=== PATIENT | male | born 1985 | race Caucasian/White ===

== ENCOUNTER 2021-07-05 12:55 | Emergency (ER) | payer OTHER, SELFPAY ==
--- NOTE | ~2021-07-05 | CT_ITS ---
CT head/brain wo con CLINICAL INFORMATION: Reason for Exam headache COMPARISON: No prior CT scan available for comparison. TECHNIQUE: Department standard protocol. This CT examination was performed using dose optimization techniques as appropriate, variously including the following: *Automated exposure control *Adjustment of mA and/or kV according to patient size (this includes techniques or standardized protocols for targeted exams where dose is matched to indication/reason for exam; i.e. extremities or head) *Use of iterative reconstruction technique DLP: 1131 mGy-cm FINDINGS: CEREBRAL HEMISPHERES: There is no evidence of intra-axial or extra-axial mass, hemorrhage or acute infarct. BRAIN PARENCHYMA: Normal gurrola-white matter differentiation. SUBDURAL SPACE: No bleed. BASAL GANGLIA AND PINEAL GLAND: Unremarkable VENTRICLES: Symmetric and normal in size. CEREBELLUM AND BRAINSTEM: No space-occupying mass, hemorrhage or acute infarct. CEREBELLOPONTINE ANGLES: No lesion found. ORBITS: No intraorbital mass. VESSELS: Unremarkable SKULL BASE: Unremarkable INCLUDED SINUSES AT SKULL BASE: There is partial opacification of the ethmoidal air cells bilaterally suggesting sinusitis. SKULL AND SKIN: No fracture or bone lesion found. CT/CT head/brain wo con IMPRESSION: Fluid and mucosal thickening in the maxillary sinuses bilaterally suggesting sinusitis, this can be evaluated by dedicated CT sinuses if clinically indicated. No intracranial mass or bleed. Normal CT scan does not rule out the possibility of hyperacute infarct in the first 12 hours. If patient symptoms persist may consider correlation with MRI, which is more sensitive for early acute infarct.
[2021-07-05 13:09] VITALS: BP 151/90; PULSE 101; RESP 20; TEMP 36.9; O2SAT 97; BMI 33.9
[2021-07-05] MEDS: Ondansetron ODT 4 MG TAB.RAPDIS TRANSLINGU (13:22)
[2021-07-05 13:46] LABS: COVID-19 Test Negative (Negative); IDNOW Serial# 16C4AD1C
[2021-07-05 13:47] LABS: IDNOW Serial# 9DD0AD1C; Influenza A Negative (Negative); Influenza B2 Negative (Negative)
--- NOTE | 2021-07-05 14:02 | ED.NAVMDI ---
HPI - Nausea/Vomiting/Diarrhea General Chief complaint: Nausea/Vomiting/Diarrhea Stated complaint: vomiting sore throat x 3 days Time Seen by Provider: 07/05/21 13:54 Source: patient Mode of arrival: ambulatory Limitations: no limitations History of Present Illness MD elicited complaint: nausea, vomiting, abdominal pain and other (headaches) Pertinent past history: other (hx of headaches in the past causing vomiting and then abdominal pain) Onset (ago): day(s) (3) Description of vomiting: food contents, watery and none Associated nausea: Yes Associated abdominal pain: Yes Location of pain: diffuse Pain consistency: constant Severity: moderate Quality: other (throbbing pain ) Exacerbating factors: vomiting Relieving factors: none Context: other (hx recently of headaches once a month causing severe pain and vomiting - he has not had imaging done but has gone to [facility] for treatment, he notes he is vomiting longer than usual this time. Has not seen a PCP. Took no OTC medications) Associated symptoms: headaches and nausea/vomiting Treatment prior to arrival: other (tried TUMs) Related Data Allergies Allergy/AdvReac Type Severity Reaction Status Date / Time ibuprofen [IBUPROFEN] Allergy Mild RASH Unverified 11/04/19 16:14 diphenhydramine AdvReac Agitated Verified 07/05/21 14:26 [From Benadryl] ANESTHESIA Allergy Mild ABDOMINAL Uncoded 11/04/19 16:14 PAIN Review of Systems Review of Systems: Constitutional : No Fever, No Chills, No Fatigue ENT/Mouth : No sore throat, No Rhinorrhea Eyes: No Eye Pain, No Swelling, No Redness Cardiovascular : No Chest Pain, No SOB, No Dyspnea on Exertion Respiratory : No Cough, No Sputum Gastrointestinal : pos Nausea, pos Vomiting, No Diarrhea, No abdominal Pain Genitourinary : No Dysuria, No Urinary Frequency, No Hematuria, Musculoskeletal : No joint pain, No Myalgias, No Joint Swelling Skin : No Skin Lesions, No rash Neuro : No Weakness, No Numbness, No Dizziness, positive Headache Psych : No Anxiety/Panic, No Depression Heme/Lymph: No Bruising, No Bleeding,No Lymphadenopathy Endocrine : No Polyuria, No Polydipsia All other systems reviewed and are negative Gastrointestinal: Gastrointestinal: Reports nausea PMFSH Past Medical History Attestation statement: The following information was validated with the patient. Source: old records reviewed Medical History Cyclical vomiting Headache Social History Social History (Updated 07/05/21 @ 14:08 by Leticia Astorga DO) Alcohol intake: never Patient Tobacco Use Status: Current everyday Tobacco user Use of substances other than those prescribed or required for medical reasons: No Substance Use Type: Former Substance User Advance Directives: No Advance Directives Information Provided: No Physical Exam Vital Signs: Vital Signs: Last Vital Signs Temp 98.5 F 07/05/21 13:09 Pulse 92 07/05/21 14:30 Resp 18 07/05/21 14:30 BP 106/69 07/05/21 14:30 Pulse Ox 99 07/05/21 14:30 BMI result Body Mass Index 33.9 Appearance: Alert. Oriented X3. Anxious dry heaving mild acute distress. Eyes: Pupils equal, round and reactive to light. ENT: Pharynx mild dry MM Neck: Normal inspection. Neck supple. no meningeal signs CVS: Normal heart rate and rhythm. Pulses normal. Respiratory: No respiratory distress. Breath sounds normal. Abdomen: Soft and mild diffuse ttp no rebound or guarding Skin: Skin warm and dry. pale skin color. Normal skin turgor. Extremities: No lower extremity edema. No calf ttp Neuro: Oriented X 3. No motor deficit. No sensory deficit. normal gait Course Course Course Narrative: review of EMR shows multiple visits in the old system and admission for intractable nausea/vomiting related to likely THC/substance abuse and possible small hiatal hernia WBC trend range well above 12 as high as 19.7 IM haldol ordered vomiting has improved signed out to Dr. 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 He denies trauma or DOAC use. He does not have a fever here and has not taken any antipyretics at home today. States he has had a similar presentation in the past severe headache with resulting nausea that went away at home. He notes the n/v is much worse today and now both sides of his abdomen are sore. He has no fever here. Symptoms started upon waking. Given hx of similar incidence in past doubt SAH, no fevers here he has a soft supple neck doubt [employer] infection. At this time no prior CT scan of head for mass - will order today along with supportive medications and IVF. Dispo per results and findings. Lab Data Result diagrams: 07/05/21 14:18 07/05/21 14:18 Labs: Lab Results 07/05/21 07/05/21 07/05/21 Range/Units 13:17 13:17 14:18 WBC (4.8-10.8) X10*3/uL RBC (4.60-5.80) X10*6/uL Hgb (14.0-18.0) g/dl Hct (42.0-52.0) % MCV (80.0-98.0) fL MCH (27.0-33.0) pg MCHC (31.0-36.0) g/dl RDW (11.0-16.0) % Plt Count (160-400) X10*3/uL MPV (9.4-12.4) fL Immature Gran % (Auto) (0.0-0.4) % Neut % (Auto) (45-73) % Lymph % (Auto) (20-40) % Preston % (Auto) (2-11) % Eos % (Auto) (0-4) % Baso % (Auto) (0-2) % Lymph # (Auto) (1.2-4.9) X10*3/uL Preston # (Auto) (0.1-1.2) X10*3/uL Eos # (Auto) (0.0-0.4) X10*3/uL Baso # (Auto) (0.0-0.2) X10*3/uL Abs Immat Gran (auto) (0.00-0.03) X10*3/uL Absolute Neuts (auto) (2.0-8.3) x10*3/uL Absolute Nucleated RBC (0.0-0.012) X10*3/uL Nucleated RBC % (auto) (0.0-0.2) /100WBC PT (9.9-13.0) SEC INR (0.9-1.1) Sodium 140 (135-145) mmol/L Potassium 3.6 (3.3-5.1) mmol/L Chloride 103 (96-108) mmol/L Carbon Dioxide 28 (22-29) mmol/L Anion Gap 13 (12-20) BUN 8 L (9-16) mg/dL Creatinine 0.96 (0.5-1.4) mg/dL Estim Creat Clear Calc 118.2 Estimated GFR > 60 Random Glucose 101 (60-115) mg/dL Calcium 9.7 (8.4-10.2) mg/dL Magnesium (1.6-2.6) mg/dL Total Bilirubin (0.0-1.0) mg/dL Direct Bilirubin (0.0-0.5) mg/dL AST (5-37) U/L ALT (0-40) U/L Alkaline Phosphatase (39-117) U/L Total Protein (6.5-8.0) g/dL Albumin (3.5-5.0) g/dL Lipase (8-78) U/L COVID-19 (PRISCILA) Negative (Negative) COVID-19 Clin Com See Note Influenza Type A (MICHAEL) Negative (Negative) Influenza Type B (MICHAEL) Negative (Negative) Influenza A & B Note See Note 07/05/21 07/05/21 07/05/21 Range/Units 14:18 14:18 14:18 WBC 14.5 H (4.8-10.8) X10*3/uL RBC 4.77 (4.60-5.80) X10*6/uL Hgb 13.7 L (14.0-18.0) g/dl Hct 41.1 L (42.0-52.0) % MCV 86.2 (80.0-98.0) fL MCH 28.7 (27.0-33.0) pg MCHC 33.3 (31.0-36.0) g/dl RDW 14.0 (11.0-16.0) % Plt Count 276 (160-400) X10*3/uL MPV 9.3 L (9.4-12.4) fL Immature Gran % (Auto) 0.3 (0.0-0.4) % Neut % (Auto) 81.6 H (45-73) % Lymph % (Auto) 11.9 L (20-40) % Preston % (Auto) 5.9 (2-11) % Eos % (Auto) 0.1 (0-4) % Baso % (Auto) 0.2 (0-2) % Lymph # (Auto) 1.7 (1.2-4.9) X10*3/uL Preston # (Auto) 0.9 (0.1-1.2) X10*3/uL Eos # (Auto) 0.0 (0.0-0.4) X10*3/uL Baso # (Auto) 0.0 (0.0-0.2) X10*3/uL Abs Immat Gran (auto) 0.05 H (0.00-0.03) X10*3/uL Absolute Neuts (auto) 11.8 H (2.0-8.3) x10*3/uL Absolute Nucleated RBC 0.000 (0.0-0.012) X10*3/uL Nucleated RBC % (auto) 0.0 (0.0-0.2) /100WBC PT 12.8 (9.9-13.0) SEC INR 1.1 (0.9-1.1) Sodium (135-145) mmol/L Potassium (3.3-5.1) mmol/L Chloride (96-108) mmol/L Carbon Dioxide (22-29) mmol/L Anion Gap (12-20) BUN (9-16) mg/dL Creatinine (0.5-1.4) mg/dL Estim Creat Clear Calc Estimated GFR Random Glucose (60-115) mg/dL Calcium (8.4-10.2) mg/dL Magnesium 1.8 (1.6-2.6) mg/dL Total Bilirubin 0.5 (0.0-1.0) mg/dL Direct Bilirubin 0.2 (0.0-0.5) mg/dL AST 15 (5-37) U/L ALT 24 (0-40) U/L Alkaline Phosphatase 61 (39-117) U/L Total Protein 7.2 (6.5-8.0) g/dL Albumin 4.2 (3.5-5.0) g/dL Lipase 7 L (8-78) U/L COVID-19 (PRISCILA) (Negative) COVID-19 Clin Com Influenza Type A (MICHAEL) (Negative) Influenza Type B (MICHAEL) (Negative) Influenza A & B Note Discharge Plan Discharge Clinical Impression: Acute generalized abdominal pain Vomiting Qualifiers: Vomiting type: unspecified Nausea presence: with nausea Qualified Code(s): R11.2 - Nausea with vomiting, unspecified Sinusitis Qualifiers: Sinusitis location: maxillary Chronicity: acute Recurrence: non-recurrent Qualified Code(s): J01.00 - Acute maxillary sinusitis, unspecified Patient Disposition: Still a Patient
[2021-07-05 14:24] LABS: MANUAL DIFF FLAG NO
[2021-07-05 14:25] LABS: Basophils Percent Auto 0.2 % (0-2); Eosinophils Percent Auto 0.1 % (0-4); Hematocrit 41.1 % (42.0-52.0); Hemoglobin 13.7 g/dl (14.0-18.0); Imm Gran Abs Auto 0.05 X10*3/uL (0.00-0.03); Imm Gran Pct Auto 0.3 % (0.0-0.4); Lymphocytes Absolute Auto 1.7 X10*3/uL (1.2-4.9); Lymphocytes Percent Auto 11.9 % (20-40); Mean Corpuscular HGB Conc 33.3 g/dl (31.0-36.0); Mean Corpuscular Hemoglobin 28.7 pg (27.0-33.0); Mean Corpuscular Volume 86.2 fL (80.0-98.0); Mean Platelet Volume 9.3 fL (9.4-12.4); Monocytes Absolute Auto 0.9 X10*3/uL (0.1-1.2); Monocytes Percent Auto 5.9 % (2-11); Neutrophils Absolute Auto 11.8 x10*3/uL (2.0-8.3); Neutrophils Percent Auto 81.6 % (45-73); Platelet Count 276 X10*3/uL (160-400); Red Blood Count 4.77 X10*6/uL (4.60-5.80); White Blood Count 14.5 X10*3/uL (4.8-10.8)
[2021-07-05] MEDS: 0.9 % Sodium Chloride 1,000 ML 999 ML IVCONT (14:26)
[2021-07-05] MEDS: LORazepam 2 MG/ML VIAL 1 MG IVPUSH (14:27)
[2021-07-05] MEDS: Famotidine/PF 20 MG/2 ML VIAL IVPUSH (14:27)
[2021-07-05] MEDS: Metoclopramide HCl 10 MG/2 ML VIAL IVPUSH (14:28)
[2021-07-05 14:30] VITALS: BP 106/69; PULSE 92; RESP 18; O2SAT 99
[2021-07-05 14:40] LABS: INTERNATIONAL NORM RATIO 1.1 (0.9-1.1); Prothrombin Time 12.8 SEC (9.9-13.0)
[2021-07-05 14:42] LABS: Anion Gap 13 (12-20); Blood Urea Nitrogen 8 mg/dL (9-16); Calcium 9.7 mg/dL (8.4-10.2); Carbon Dioxide 28 mmol/L (22-29); Chloride 103 mmol/L (96-108); Creatinine Clr Calc Pharmacy 118.2; Estimated Glomerular Filt Rate > 60; Glucose Random 101 mg/dL (60-115); Potassium 3.6 mmol/L (3.3-5.1); Sodium 140 mmol/L (135-145)
[2021-07-05 14:43] LABS: Alanine Aminotransferase 24 U/L (0-40); Albumin Level 4.2 g/dL (3.5-5.0); Alkaline Phosphatase 61 U/L (39-117); Aspartate Amino Transferase 15 U/L (5-37); Bilirubin Direct 0.2 mg/dL (0.0-0.5); Bilirubin Total 0.5 mg/dL (0.0-1.0); Lipase 7 U/L (8-78); Magnesium 1.8 mg/dL (1.6-2.6); Total Protein 7.2 g/dL (6.5-8.0)
--- NOTE | 2021-07-05 15:14 | PC.NURSE ---
Vomiting has ceesed. Pt is standing at bedside. States he feels better. skin pwd. no dry heaving.
[2021-07-05] MEDS: Haloperidol Lactate 5 MG/ML VIAL IM (15:35)
== END 2021-07-05 17:45 | disposition home or self-care (01) ==
PROVIDERS: Emergency Medicine; Emergency Provider Emergency Medicine
DX: J01.00 Acute maxillary sinusitis, unspecified (principal); R11.2 Nausea with vomiting, unspecified; R51.9 Headache, unspecified; Z20.822 Contact with and (suspected) exposure to COVID-19; F17.210 Nicotine dependence, cigarettes, uncomplicated; Z71.6 Tobacco abuse counseling; Z79.899 Other long term (current) drug therapy
CPT/HCPCS: 36415; 70450; 80048; 80076; 83690; 83735; 85025; 85610; 87502; 87635; 96361; 96372; 96374; 96375; 99284; J2060; J2765

== ENCOUNTER 2022-01-13 10:40 | Emergency (ER) | payer OTHER, SELFPAY ==
--- NOTE | ~2022-01-13 | CT_ITS ---
EXAMINATION: CT BRAIN AND CT FACIAL BONES. CLINICAL INFORMATION: Fall with head injury. Pain. COMPARISON: CT brain 07/05/2021 TECHNIQUE: 5 mm thin axial and reformatted 2 mm thin sagittal and coronal images of brain were obtained. Subsequently axial 3 mm thin and reformatted 1.5 mm thin sagittal and coronal images of facial bones were obtained. DLP 1058. FINDINGS: Brain: There is no acute intra-axial, extra-axial bleed, masses or midline shift. There is no acute infarction evolution. The lateral ventricles are symmetrical in size and configuration. The [place] to white matter difference is maintained normal. Bone windows reveal no calvarial abnormality. There is no scalp soft tissue abnormality. There is diffuse mucoperiosteal thickening bilateral ethmoid and sphenoid sinuses. The mastoid sinuses are well-aerated and clear. Facial bones: There is diffuse mucoperiosteal thickening bilateral frontal, ethmoid and maxillary sinuses likely preexistent inflammatory process. No visible acute fracture seen involving the bony sinus colby. The bony orbits are intact. Optic nerve, optic globe and the intraorbital soft tissues are symmetrical and normal. There is deviation of nasal septum to the right with small bony spur. The turbinates are asymmetric part of nasal cycle. The nasal cavity and nasopharyngeal airway is widely patent. There is no fracture involving the nasal bone. The maxillofacial bones are intact. There is no visible fracture seen. Bilateral TM joints are symmetric and normal. There is no fracture involving the mandible. No periapical cyst. CT/CT facial bones wo IV con IMPRESSION: No acute intracranial process seen. Chronic pansinusitis. No maxillofacial, nasal or mandibular fractures seen.
--- NOTE | ~2022-01-13 | CT_ITS ---
EXAMINATION: CT BRAIN AND CT FACIAL BONES. CLINICAL INFORMATION: Fall with head injury. Pain. COMPARISON: CT brain 07/05/2021 TECHNIQUE: 5 mm thin axial and reformatted 2 mm thin sagittal and coronal images of brain were obtained. Subsequently axial 3 mm thin and reformatted 1.5 mm thin sagittal and coronal images of facial bones were obtained. DLP 1058. FINDINGS: Brain: There is no acute intra-axial, extra-axial bleed, masses or midline shift. There is no acute infarction evolution. The lateral ventricles are symmetrical in size and configuration. The [place] to white matter difference is maintained normal. Bone windows reveal no calvarial abnormality. There is no scalp soft tissue abnormality. There is diffuse mucoperiosteal thickening bilateral ethmoid and sphenoid sinuses. The mastoid sinuses are well-aerated and clear. Facial bones: There is diffuse mucoperiosteal thickening bilateral frontal, ethmoid and maxillary sinuses likely preexistent inflammatory process. No visible acute fracture seen involving the bony sinus colby. The bony orbits are intact. Optic nerve, optic globe and the intraorbital soft tissues are symmetrical and normal. There is deviation of nasal septum to the right with small bony spur. The turbinates are asymmetric part of nasal cycle. The nasal cavity and nasopharyngeal airway is widely patent. There is no fracture involving the nasal bone. The maxillofacial bones are intact. There is no visible fracture seen. Bilateral TM joints are symmetric and normal. There is no fracture involving the mandible. No periapical cyst. CT/CT head/brain wo IV con IMPRESSION: No acute intracranial process seen. Chronic pansinusitis. No maxillofacial, nasal or mandibular fractures seen.
--- NOTE | ~2022-01-13 | XR_ITS ---
EXAMINATION: XR CHEST CLINICAL INFORMATION: Fall COMPARISON: Chest x-ray March 13, 2017 TECHNIQUE: 2 views of the chest were obtained. FINDINGS: Cardiac silhouette is normal in size. The lungs are mildly hypoinflated. There is no lobar consolidation. No pleural effusion or pneumothorax. No acute osseous abnormality. XR/XR chest 2V IMPRESSION: No acute pulmonary pathology.
[2022-01-13 11:55] VITALS: BP 106/70; PULSE 62; RESP 19; TEMP 36.1; O2SAT 98; BMI 33.9
--- NOTE | 2022-01-13 11:57 | ED.GENADULT ---
HPI - General Adult General Chief complaint: Fall Stated complaint: head inj 01/13/22 Time Seen by Provider: 01/13/22 13:22 Source: patient Mode of arrival: ambulatory Limitations: no limitations History of Present Illness HPI narrative: Patient is a 36 year old assigned male at with no reported medical history presenting to the emergency department today with nose and right sided chest wall pain after a fall. Patient states that last night he was really tired and fell forward, hitting his face and his right side. Patient denies any loss of consciousness with the incident. Patient denies any dizziness, lightheadedness, abdominal pain, nausea, vomiting, fever, chills, blurry vision, double vision, loss of vision, chest pain, difficulty breathing, shortness of breath, back pain, night sweats, pain with urination, increased urinary frequency, increased urinary urgency, blood in his urine or stool, syncope or a near syncopal episode, bowel incontinence, bladder incontinence, bowel retention, bladder retention, or any other complaints at this time. Onset (ago): day(s) (1) Location: face Severity: mild Severity scale (1-10): 2 Pain Consistency: constant Relieving factors: none Exacerbating factors: none Associated symptoms: denies other symptoms Treatments prior to arrival: none Related Data Previous Rx's Medication Instructions Recorded amoxicillin 500 mg-potassium 1 tab PO BID #14 tabs 07/05/21 clavulanate 125 mg tablet (Augmentin) metoclopramide HCl 5 mg tablet 5 mg PO DAILY PRN nausea and 07/05/21 (Reglan) vomiting #14 tabs Allergies Allergy/AdvReac Type Severity Reaction Status Date / Time ibuprofen [IBUPROFEN] Allergy Mild RASH Unverified 11/04/19 16:14 diphenhydramine AdvReac Agitated Verified 07/05/21 14:26 [From Benadryl] ANESTHESIA Allergy Mild ABDOMINAL Uncoded 11/04/19 16:14 PAIN Review of Systems Constitutional: Constitutional: Reports no additional constitutional complaints, Denies chills, Denies fever(s) and Denies night sweats Eyes: Eyes: Reports no additional eye complaints, Denies blurry vision, Denies change in vision, Denies diplopia, Denies eye discharge, Denies loss of vision and Denies eye pain ENT: Denies dizziness and Reports nose pain Cardiovascular: Cardiovascular: Reports no additional cardiovascular complaints, Denies chest pain, Denies lightheadedness, Denies Loss of Consciousness and Denies dyspnea Comments: right sided chest wall pain Respiratory: Respiratory: Reports no additional respiratory complaints and Denies dyspnea Gastrointestinal: Gastrointestinal: Reports no additional gastrointestinal complaints, Denies abdominal pain, Denies melena, Denies hematochezia, Denies change in bowel habits and Denies change in stool character Genitourinary: Genitourinary: Reports no additional male genitourinary complaints, Denies hematuria, Denies oliguria, Denies difficulty urinating, Denies dysuria, Denies urinary frequency, Denies urinary hesitancy, Denies urinary incontinence and Denies urinary urgency Musculoskeletal: Musculoskeletal: Reports no additional musculoskeletal complaints, Denies numbness and Denies tingling Neurologic: Denies dizziness, Denies loss of vision, Denies numbness and Denies tingling Psychiatric: Psychiatric: Reports no additional psychiatric complaints Endocrine: Endocrine: Reports no additional endocrine complaints Hematologic/Lymphatic: Hematologic/Lymphatic: Reports no additional hematologic/lymphatic complaints Allergic/Immunologic: Allergic/Immunologic: Reports no additional allergic/immunologic complaints PMFSH Past Medical History Attestation statement: The following information was validated with the patient. Source: old records reviewed Medical History Cyclical vomiting Headache Social History Social History Alcohol intake: never Patient Tobacco Use Status: Current everyday Tobacco user Substance Use Type: Former Substance User Advance Directives: No Advance Directives Information Provided: No Physical Exam ED Vital Signs: Vital Signs - 24 hr 01/13/22 11:55 Temperature 96.9 F Pulse Rate 62 Respiratory Rate 19 Blood Pressure 106/70 Pulse Oximetry 98 Oxygen Delivery Method Room Air BMI result Body Mass Index 33.9 Const General: cooperative, no acute distress, alert and awake Nutritional Appearance: well nourished Orientation/consciousness: patient oriented x3 Limitations: no limitations HENMT Other: small abrasion to the bridge of the nose, no active bleeding, no gaping areas Ears: hearing grossly normal bilaterally and external ears normal General nose exam: Normal external nose present, no nasal discharge noted and no epistaxis Face and sinus: Yes normal facial exam, No abrasion and No laceration Mouth: Normal oral and palatal mucosa present, no drooling and no muffled voice Eyes General: appearance normal, both eyes and all related structures Periorbital: periorbital findings normal Eyelids: Yes eyelids normal Conjunctivae: conjunctivae normal Pupils: Equal, round and reactive pupils present EOM: EOMs intact bilaterally Neck Neck: Yes normal visual inspection, Yes full ROM and Yes no lymphadenopathy Chest Chest palpation & inspection: normal inspection of the chest Resp Effort & Inspection: normal respiratory effort and able to speak in complete sentences GI Inspection: Yes normal to inspection Neuro General: patient oriented x3 and moves all extremities Cranial nerves: Yes Equal, round and reactive pupils present Cognition (Neuro): normal cognition Motor exam (neuro): 5/5 motor strength present throughout Sensory Exam: Normal double simultaneous stimulation for sensation Coordination: [id number] test normal Extrem General: Yes normal to inspection, Yes full ROM and Yes capillary refill normal Psych Appearance: grossly normal Mental Status: mental status grossly normal Affect: normal affect Attitude: cooperative Thought process: Normal thought process present Thought content: Normal thought content present Insight: Good insight present (Psych) Course Course Course Narrative: RME performed by Tatiana Grover PA-C. Patient is a 36 year old male presenting to the emergency department after falling forward and hitting his face and his right ribs. Patient denies any loss of consciousness. 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 Patient states that his son was recently sick and he is concerned that he may have COVID-19 and would like to be swabbed. CT head, CT facial bones, chest XR, and COVID-19 swab ordered. Patient placed back in waiting room pending results and bed availability. Medical Decision Making MDM Narrative Medical decision making narrative: Patient is a 36 year old assigned male at with no reported medical history presenting to the emergency department today with nasal pain and right sided chest wall pain. Patient's physical exam showed a small abrasion to the bridge of the nose with no active bleeding or gaping areas. Patient's chest x-ray, head CT, and facial bones CT showed no acute process. I explained my physical exam findings as well as all test results to the patient. I answered all questions asked by the patient. I stressed the importance of the patient taking his medication as prescribed. I stressed the importance of the patient following up with his primary care provider. I stressed the importance of the patient returning to the emergency department immediately if his symptoms were to worsen or if he were to develop any dizziness, shortness of breath, difficulty breathing, chest pain, blurry vision, loss of vision, nausea, vomiting, abdominal pain, fever, chills, back pain, or any other complaints. Patient verbalized agreement and understanding with this treatment plan and discharge. Medical Records Medical records reviewed: Yes I reviewed the patient's medical records. Lab Data Lab results reviewed: Yes I reviewed the patient's lab results. Labs: Lab Results 01/13/22 Range/Units 12:08 COVID-19 (PRISCILA) Negative (Negative) COVID-19 Clin Com See Note Imaging Data Chest x-ray: Attestation: I personally reviewed and interpreted this imaging study as follows: My impression: No acute process. Radiologist's impression: EXAMINATION: XR CHEST CLINICAL INFORMATION: Fall COMPARISON: Chest x-ray March 13, 2017 TECHNIQUE: 2 views of the chest were obtained. FINDINGS: Cardiac silhouette is normal in size. The lungs are mildly hypoinflated. There is no lobar consolidation. No pleural effusion or pneumothorax. No acute osseous abnormality. XR/XR chest 2V IMPRESSION: No acute pulmonary pathology. Dictated By: Sergio Shepard MD Signed By: Electronically signed by Sergio Shepard MD 01/13/[address] head and facial bones: Attestation: I personally reviewed and interpreted this imaging study as follows: My impression: No acute process. Radiologist's impression: EXAMINATION: CT BRAIN AND CT FACIAL BONES. CLINICAL INFORMATION: Fall with head injury. Pain.? COMPARISON: CT brain 07/05/2021? TECHNIQUE: 5 mm thin axial and reformatted 2 mm thin sagittal and coronal images of brain were obtained. Subsequently axial 3 mm thin and reformatted 1.5 mm thin sagittal and coronal images of facial bones were obtained. DLP 1058. FINDINGS: Brain: There is no acute intra-axial, extra-axial bleed, masses or midline shift. There is no acute infarction evolution. The lateral ventricles are symmetrical in size and configuration. The gurrola to white matter difference is maintained normal. Bone windows reveal no calvarial abnormality. There is no scalp soft tissue abnormality. There is diffuse mucoperiosteal thickening bilateral ethmoid and sphenoid sinuses. The mastoid sinuses are well-aerated and clear. Facial bones: There is diffuse mucoperiosteal thickening bilateral frontal, ethmoid and maxillary sinuses likely preexistent inflammatory process. No visible acute fracture seen involving the bony sinus colby. The bony orbits are intact. Optic nerve, optic globe and the intraorbital soft tissues are symmetrical and normal. There is deviation of nasal septum to the right with small bony spur. The turbinates are asymmetric part of nasal cycle. The nasal cavity and nasopharyngeal airway is widely patent. There is no fracture involving the nasal bone. The maxillofacial bones are intact. There is no visible fracture seen. Bilateral TM joints are symmetric and normal. There is no fracture involving the mandible. No periapical cyst. CT/CT head/brain wo IV con IMPRESSION: No acute intracranial process seen. ? Chronic pansinusitis. No maxillofacial, nasal or mandibular fractures seen.? Dictated By: Ari Bowling MD Signed By: Electronically signed by Ari Bowling MD 01/13/22 1313 Discharge Plan Discharge Clinical Impression: Fall Patient Disposition: Home, Self-Care Instructions: Fall Prevention (ED) Additional Instructions: Follow up with your primary care provider. Return to the emergency department immediately if your symptoms worsen or if you develop any dizziness, shortness of breath, difficulty breathing, chest pain, blurry vision, loss of vision, nausea, vomiting, abdominal pain, fever, chills, back pain, or any other complaints. Prescriptions: No Action amoxicillin-pot clavulanate [Augmentin] 500-125 mg tablet 1 tab PO BID Qty: 14 0RF metoclopramide HCl [Reglan] 5 mg tablet 5 mg PO DAILY PRN (Reason: nausea and vomiting) Qty: 14 0RF Referrals: [facility] Family Medicine [Provider Group] (Call to establish and follow up with a primary care provider. If you already have a primary care provider, please follow up with them. ) [facility] Primary [facility] [Provider Group] (Call to establish and follow up with a primary care provider. If you already have a primary care provider, please follow up with them. ) [facility] Primary [facility] [Provider Group] (Call to establish and follow up with a primary care provider. If you already have a primary care provider, please follow up with them. ) Stand Alone Forms: Work/School Release Print Language: Belarusian
[2022-01-13 12:36] LABS: COVID-19 Test Negative (Negative); IDNOW Serial# 9DB6401D
== END 2022-01-13 13:46 | disposition home or self-care (01) ==
PROVIDERS: Physician Assistant Medical; Emergency Provider Emergency Medicine
DX: R51.9 Headache, unspecified (principal); R07.89 Other chest pain; Z20.822 Contact with and (suspected) exposure to COVID-19; Z79.899 Other long term (current) drug therapy
CPT/HCPCS: 70450; 70486; 71046; 87635; 99282; 99283

== ENCOUNTER 2023-04-20 22:05 | Emergency (ER) | payer OTHER, SELFPAY ==
[2023-04-20 22:48] VITALS: BP 99/60; PULSE 97; RESP 16; TEMP 36.9; O2SAT 98; BMI 35.0
--- NOTE | 2023-04-21 01:07 | ED.EXTPRO ---
HPI - Extremity Problem General Chief complaint: Extremity Injury, Upper Stated complaint: arm fell asleep, cant lift wrist? Time Seen by Provider: 04/21/23 00:21 Source: patient Mode of arrival: ambulatory Limitations: no limitations History of Present Illness HPI Narrative: Patient with no significant past medical history of blindness labs with his right hand hanging on the chair when he woke up after few hours noticed that he can not to dorsiflexion of the right hand no other discomfort no headache Related Data Previous Rx's Medication Instructions Recorded amoxicillin 500 mg-potassium 1 tab PO BID #14 tabs 07/05/21 clavulanate 125 mg tablet (Augmentin) metoclopramide HCl 5 mg tablet 5 mg PO DAILY PRN nausea and 07/05/21 (Reglan) vomiting #14 tabs Allergies Allergy/AdvReac Type Severity Reaction Status Date / Time diphenhydramine AdvReac Agitated Verified 04/20/23 22:45 [From Benadryl] ANESTHESIA Allergy Mild ABDOMINAL Uncoded 04/20/23 22:45 PAIN Review of Systems Review of Systems: Yes all other systems are reviewed and are negative [facility]LY [facility] Past Medical History Medical History Cyclical vomiting Headache Social History Social History Alcohol intake: never Patient Tobacco Use Status: Current everyday Tobacco user Substance Use Type: Former Substance User Advance Directives: No Advance Directives Information Provided: No Physical Exam Vital Signs: Vital Signs: Last Vital Signs Temp 98.4 F 04/20/23 22:48 Pulse 97 04/20/23 22:48 Resp 16 04/20/23 22:48 BP 99/60 04/20/23 22:48 Pulse Ox 98 04/20/23 22:48 O2 Del Method Room Air 04/20/23 22:48 BMI result Body Mass Index 35.0 Extrem: Other: R right wrist drop no sensory loss neurovascular intact Medical Decision Making Medical Decision Making MDM Narrative: Patient with right radial palsy with wrist drop happened after patient slept with hanging his right the chair . Apply wrist sprain advised to follow Discharge Plan Discharge Clinical Impression: Right wrist drop Patient Disposition: Home, Self-Care Instructions: Radial Nerve Palsy (ED) Additional Instructions: Wear the wrist splint for support Follow with neurologist Usually takes few weeks to get better Prescriptions: No Action amoxicillin-pot clavulanate [Augmentin] 500-125 mg tablet 1 tab PO BID Qty: 14 0RF metoclopramide HCl [Reglan] 5 mg tablet 5 mg PO DAILY PRN (Reason: nausea and vomiting) Qty: 14 0RF Referrals: Brent Guillaume MD [Physician] - 2 weeks
== END 2023-04-21 02:44 | disposition home or self-care (01) ==
PROVIDERS: Emergency Provider Internal Medicine
DX: M21.331 Wrist drop, right wrist (principal)
CPT/HCPCS: 99283

== ENCOUNTER 2023-05-12 19:31 | Emergency (ER) | payer OTHER, SELFPAY ==
[2023-05-12 20:08] VITALS: BP 99/54; PULSE 68; RESP 16; TEMP 38.3; BMI 31.4
--- NOTE | 2023-05-12 20:12 | ED_ITS ---
HPI - General Adult General Chief complaint: General Medical Stated complaint: sore throat,cough,headache fever Time Seen by Provider: 05/12/23 20:40 Source: patient Mode of arrival: ambulatory Limitations: no limitations History of Present Illness HPI narrative: Patient is a 37-year-old male presents emergency department for evaluation of 4 days with sore throat, myalgia, chills. Denies headache, dizziness, nausea, vomiting, abdominal pain, cough, chest pain, shortness of breath Reports that his son recently tested positive for strep throat, he was around him about 3 days after he was on antibiotics. Related Data Previous Rx's Medication Instructions Recorded amoxicillin 500 mg-potassium 1 tab PO BID #14 tabs 07/05/21 clavulanate 125 mg tablet (Augmentin) metoclopramide HCl 5 mg tablet 5 mg PO DAILY PRN nausea and 07/05/21 (Reglan) vomiting #14 tabs Allergies Allergy/AdvReac Type Severity Reaction Status Date / Time diphenhydramine AdvReac Agitated Verified 05/12/23 20:08 [From Benadryl] ANESTHESIA Allergy Mild ABDOMINAL Uncoded 05/12/23 20:08 PAIN Review of Systems Review of Systems: Yes all other systems are reviewed and are negative PMF[facility] Past Medical History Attestation statement: The following information was validated with the patient. Source: old records reviewed Medical History Cyclical vomiting Headache Social History Social History Alcohol intake: never Patient Tobacco Use Status: Current everyday Tobacco user Substance Use Type: Former Substance User Advance Directives: No Advance Directives Information Provided: No Physical Exam ED Vital Signs: Vital Signs - 24 hr 05/12/23 20:08 Temperature 100.9 F H Pulse Rate 68 Respiratory Rate 16 Blood Pressure 99/54 L Oxygen Delivery Method Room Air BMI result Body Mass Index 31.4 Appearance: Alert.?Oriented to person, place and time. No acute distress.?Normal affect. Eyes: Pupils equal, round and reactive to light.? ENT: Pharynx mildly erythematous. No hypertrophy. No exudates. Uvula midline. No trismus. No drooling. TM normal bilaterally. Neck: Normal inspection.? Neck supple.??No cervical lymphadenopathy. CVS: Heart sounds normal. Normal heart rate and rhythm.? Pulses normal.?? Respiratory: No respiratory distress.? Lung sounds clear to auscultation bilaterally?? Abdomen: Soft and non-tender. Normoactive bowel sounds. Skin: Skin warm and dry.? Normal skin color.? ? Extremities: No lower extremity edema.? Neuro: Moves all extremities spontaneously. Sensation intact bilaterally. Ambulates with normal steady gait. Course Course Course Narrative: RME performed by Tatiana Grover PA-C. Patient is a 37 year old assigned male at presenting to the emergency department with a cough and sore throat. Detailed physical exam and review of systems are deferred to the loan collector. Swabs ordered. Patient placed back in the waiting room pending room availability and results. Medications Administered Discontinued Medications Generic Name Dose Route Start Last Admin Trade Name Freq PRN Reason Stop Dose Admin Acetaminophen 975 mg 05/12/23 20:13 05/12/23 20:37 Acetaminophen 325 Mg Tablet PO 05/12/23 20:14 975 mg ONCE ONE Administration Medical Decision Making Medical Decision Making [facility] Narrative: Patient is a 37-year-old male, presenting for evaluation of upper respiratory symptoms. COVID-19 testing negative. Strep a testing negative.. Influenza A testing positive. No evidence of peritonsillar or retropharyngeal abscess on examination. Given duration of symptoms, would not be a candidate for Tamiflu at this time. At this time history and physical exam not consistent with ACS/PE/pneumonia. Well-appearing, nontoxic, no tachycardia or tachypnea/hypoxia. Speaking clear full sentences, ambulatory with steady gait. Discussed conservative treatment including rest, hydration, Tylenol/ibuprofen as needed for fever and body aches, saline nasal spray, humidifier, [id number] cold medication. Advised to follow-up with primary care provider as needed, discussed reasons to return back to the emergency department. All questions were answered. Patient discharged home in stable condition. Provided with a return to work/school note. Differential Diagnosis Differential Diagnoses: The differential diagnosis associated with the presentation includes (See narrative above) Admission/Observation Consideration of admission/observation: Escalation of care including admission/observation considered (See narrative above) Lab Data [facility] Lab Attestation statement: I reviewed the patient's lab results. (See narrative above) Labs: Lab Results 03/25/24 Range/Units 20:23 Influenza Type A (PCR) POSITIVE A (Negative) Influenza Type B (PCR) NEGATIVE (Negative) RSV RNA Qual (PCR) NEGATIVE (Negative) SARS-CoV-2 RNA (RT-PCR) NEGATIVE (Negative) S. pyogenes GrpA MICHAEL Negative (Negative) Prescription Management I considered prescription management with: Antiviral (See narrative above) Discharge Plan Discharge Clinical Impression: Influenza A Patient Disposition: Home, Self-Care Instructions: Influenza (ED) Additional Instructions: Be sure to rest, stay well hydrated drinking plenty of fluids, eat small frequent meals. Tylenol/ibuprofen can be used as needed for fever/pain. Qqjn-[id number] cold medications may be helpful as well for symptoms. Saline nasal spray, humidifier may be helpful for nasal congestion. You may return to the emergency department with any new or worsening symptoms or concerns. Follow-up with your primary care provider as needed. Should remain out of school/ work until symptoms have resolved and have been without a fever for 24 hours without the use of Tylenol or ibuprofen. Prescriptions: No Action amoxicillin-pot clavulanate [Augmentin] 500-125 mg tablet 1 tab PO BID Qty: 14 0RF metoclopramide HCl [Reglan] 5 mg tablet 5 mg PO DAILY PRN (Reason: nausea and vomiting) Qty: 14 0RF Referrals: Physician,None [Primary Care Provider] - Stand Alone Forms: Work/School Release
[2023-05-12] MEDS: Acetaminophen 325 MG TABLET 975 MG PO (20:37)
[2023-05-12 20:45] LABS: IDNOW Serial# 08D9AD1C; Strep A Nucleic Acid Negative (Negative)
[2023-05-12 21:11] LABS: Influenza A PCR POSITIVE (Negative); Influenza B PCR NEGATIVE (Negative); Resp Syncy Virus RNA Qual PCR NEGATIVE (Negative); SARS COV2 PCR INHOUSE NEGATIVE (Negative)
[2023-05-12 22:04] VITALS: BP 102/60; PULSE 63; RESP 16; TEMP 36.9; O2SAT 98
[2023-05-12 22:27] VITALS: BP 00/00; PULSE 0; RESP 18; TEMP -17.7; TEMP 0
== END 2023-05-12 22:28 | disposition home or self-care (01) ==
PROVIDERS: Physician Assistant Medical; Emergency Provider Student in an Organized Health Care Education/Training Program
DX: J10.1 Influenza due to other identified influenza virus with other respiratory manifestations (principal); Z11.52 Encounter for screening for COVID-19; Z20.828 Contact with and (suspected) exposure to other viral communicable diseases
CPT/HCPCS: 0241U; 87651; 99283

== ENCOUNTER 2023-07-24 22:08 | Emergency (ER) | payer OTHER, SELFPAY ==
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
[2023-07-24 22:26] VITALS: BP 128/62; PULSE 78; RESP 18; TEMP 36.8; O2SAT 98; BMI 31.1
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
[2023-07-25 01:01] VITALS: BP 112/84; PULSE 66; RESP 16; TEMP 36.3; O2SAT 98
== END 2023-07-25 01:01 | disposition home or self-care (01) ==
LOC: HO.ED 07-25 00:49
PROVIDERS: Emergency Provider Emergency Medicine Emergency Medical Services
DX: S09.90XA Unspecified injury of head, initial encounter (principal); M54.2 Cervicalgia; R51.9 Headache, unspecified; V43.52XA Car driver injured in collision with other type car in traffic accident, initial encounter; Y93.9 Activity, unspecified; Y92.410 Unspecified street and highway as the place of occurrence of the external cause; Y99.8 Other external cause status
CPT/HCPCS: 70450; 72125; 99282; 99284